=== PATIENT | male | born 1985 | race Caucasian/White ===

== ENCOUNTER 2016-09-11 06:08 | Day surgery (SDC) | payer BC ==
[~2016-09-11] VITALS: Ht 175.3 cm; Wt 110.7 kg
[~2016-09-11 06:08] MED LIST: IBUPROFEN200 M1 PO
--- NOTE | 2016-09-11 08:40 | DIAGNOSTIC IMAGING REPORT ---
PROCEDURE: XR INTRAOPERATIVE LAP MOOK INDICATION: GALLSTONES TECHNIQUE: Intraoperative fluoroscopy provided for Dr. Ye performing an intraoperative cholangiogram following cholecystectomy. Total fluoroscopy time 6 seconds Cumulative dose 2.6 mGy. COMPARISON: Abdominal ultrasound 08/11/2016 FINDINGS: Four intraoperative fluoroscopic spot images of the right upper quadrant of the abdomen demonstrate cannulation of the cystic duct stump and opacification of the intrahepatic and extrahepatic biliary tree. There are no filling defects. There is normal passage of contrast into the duodenum. IMPRESSION: 1. Negative intraoperative cholangiogram.
[2016-09-11] MEDS ORDERED: HYCET1 ML PO (08:51)
--- NOTE | 2016-09-11 08:52 | Provider's Discharge Care Plan ---
Problem, Goal, Plan Problem List 1. S/P laparoscopic cholecystectomy Goals: Improve disease control, Therapeutic intervention Instructions: Follow up as directed, Take meds as directed
--- NOTE | 2016-09-11 08:52 | Provider's Discharge Care Plan ---
Problem, Goal, Plan Problem List 1. S/P laparoscopic cholecystectomy Goals: Improve disease control, Therapeutic intervention Instructions: Follow up as directed, Take meds as directed
--- NOTE | 2016-09-11 09:32 | OPERATIVE REPORT ---
DATE OF SURGERY: 09/11/2016 SURGEON: Carmine Ye III, MD [employer] DEPARTMENT: Dileep Luna MD PREOPERATIVE DIAGNOSIS: 1. Symptomatic cholelithiasis POSTOPERATIVE DIAGNOSIS: 1. Subacute cholecystitis, hydrops of the gallbladder PROCEDURE PERFORMED: 1. Laparoscopic cholecystectomy. 2. Fluoroscopic intraoperative cholangiogram. ANESTHESIA: General endotracheal anesthesia. COMPLICATIONS: No intraoperative complications occurred. ESTIMATED BLOOD LOSS: None. FLUIDS: 700 mL of lactated Ringers. PATHOLOGY SPECIMEN: Gallbladder and contents. INDICATIONS: The patient is a 31-year-old male with a several year history of right upper quadrant abdominal pain. Over the last couple of months, this discomfort as recurring more and more frequently. He is now having attacks 3-4 times per week. Recent ultrasound shows that the patient has cholelithiasis. FINDINGS: The patient was noted to have a thickened distended gallbladder, hydrops of the gallbladder. A large stone impacted in the neck of the gallbladder. Fluoroscopic intraoperative cholangiogram showed free flow of contrast material into the duodenum. No evidence of obstruction, visualization of hepatic radicles, hepatic duct, and common bile duct. SURGICAL TECHNIQUE: The patient was brought to the operating room and placed in the dorsal supine position, where he underwent general endotracheal anesthesia by the anesthesiology department. After proper anesthesia had taken effect, the patient 's abdomen was prepped using Betadine and draped in a sterile fashion. An infraumbilical incision made, carried down through skin and subcutaneous tissue. A Veress needle was inserted through this site into the abdominal cavity and after ascertaining its appropriate position with suction irrigation, pneumoperitoneum obtained using CO2 insufflation to approximately 14-15 mmHg pressure. Once this pressure was reached, the Veress needle was removed and replaced with a 10 mm trocar. The trocar removed leaving the sleeve behind, through which a laparoscopic video camera was introduced into the abdominal cavity. Under direct visualization, a separate 10 mm trocar was placed in the subxiphoid region. It entered the abdominal cavity under direct visualization. Two 5 mm trocars were placed in the anterolateral abdominal wall. Each entered the abdominal cavity under direct visualization. The trocars were removed, leaving the sleeves behind, through which laparoscopic instrumentation was introduced into the abdominal cavity. The gallbladder, which was quite thickened, was grasped and retracted cephalad. The cystic duct was isolated using a combination of blunt dissection and electrocautery. A clip was placed at the junction of the neck of the gallbladder and the cystic duct. A small incision made in the anterior surface of the cystic duct. A percutaneous cholangiogram catheter was threaded through the anterior abdominal wall into the cystic duct and clipped into position and a fluoroscopic intraoperative cholangiogram obtained with the aforementioned findings noted. Once completed, the percutaneous cholangiogram catheter was retrieved from the cystic duct and the abdominal cavity. The distal cystic duct was clipped in continuity, divided using scissors. The cystic artery identified, clipped in continuity and divided. The gallbladder was taken down from its bed in a retrograde fashion using electrocautery dissection. Once completely freed from its bed, the gallbladder was placed in a sterile specimen container bag and retrieved from the abdominal cavity and sent to pathology. The gallbladder bed was inspected for hemostasis. Assuring ourselves of proper hemostasis, the right upper quadrant was irrigated with warm normal saline and antibiotic solution and the irrigant suctioned out. The pneumoperitoneum released and all trocars were removed from the abdominal cavity. All trocar sites approximated using 4-0 subdermal Polysorb and Steri-Strips. A sterile pressure occlusive dressing was placed over each site. The patient tolerated the procedure well, was extubated and transferred to the recovery room in stable condition.
[2016-09-11 10:35] VITALS: BP 131/89
== END 2016-09-11 11:47 | disposition home or self-care (01) ==
LOC: OR SRH 06:08 → SCU SRH 06:12 → OR SRH 07:30
PROVIDERS: Specialist
PROC: BF131ZZ Fluoroscopy of Gallbladder and Bile Ducts using Low Osmolar Contrast (ICD-10-PCS; principal; 2016-09-11 07:30)
PROC: 0FT44ZZ Resection of Gallbladder, Percutaneous Endoscopic Approach (ICD-10-PCS; principal; 2016-09-11 07:30)
DX: K80.18 Calculus of gallbladder with other cholecystitis without obstruction (principal); K82.1 Hydrops of gallbladder; Z72.0 Tobacco use
CPT/HCPCS: 29240; 50002; 60001; 70002; 80102; 80212; 80248; 82669; 82672; 82794; 82807; 83338; 83339; 83348; 83587; 83920; 83937; 83982; 84038; 84322; 90047; 90074; 95059